=== PATIENT | female | born 1955 | race Caucasian/White ===

== ENCOUNTER 2017-12-11 07:52 | Day surgery (SDC) | payer BC ==
[~2017-12-11] VITALS: Ht 172.7 cm; Wt 57.6 kg
[~2017-12-11 07:52] MED LIST: ALUMAGSIMA PO; Norco 5-325 Ta1 EACH PO; OMEP20ER PO; SUCR1 PO; [UNRECOGNIZED DRUG - OTHER]
[2017-12-11] MEDS ORDERED: Caltrate-600 W1 EACH (09:07)
[2017-12-11] MEDS ORDERED: CENTRUM COMPLE1 EACH (09:07)
[2017-12-11] MEDS ORDERED: DEXL60CA3 (09:07)
== END 2017-12-11 10:15 | disposition home or self-care (01) ==
LOC: ORSCSDS 07:52
PROVIDERS: Internal Medicine Gastroenterology
PROC: 0DBH8ZX Excision of Cecum, Via Natural or Artificial Opening Endoscopic, Diagnostic (ICD-10-PCS; principal; 2017-12-11 09:30)
PROC: 0DBM8ZX Excision of Descending Colon, Via Natural or Artificial Opening Endoscopic, Diagnostic (ICD-10-PCS; principal; 2017-12-11 09:30)
DX: Z12.11 Encounter for screening for malignant neoplasm of colon (principal); D12.0 Benign neoplasm of cecum; K63.5 Polyp of colon; K64.8 Other hemorrhoids; D64.9 Anemia, unspecified; Z87.891 Personal history of nicotine dependence
CPT/HCPCS: 88305; J7120

== ENCOUNTER 2018-12-30 08:36 | Day surgery (SDC) | payer BC ==
[~2018-12-30] VITALS: Ht 172.7 cm; Wt 60.2 kg
[~2018-12-30 08:36] MED LIST changes: +CENTRUM COMPLE1 EACH; +Caltrate-600 W1 EACH; +DEXL60CA3
--- NOTE | 2018-12-30 10:05 | NUR ---
12/30/18 1005 Maria Romo WHEN ASKED IF PT. HAD ANY PAIN, PT. VERBALIZES DISCOMFORT IN HER ABD. BUT COULDN'T DESCRIBE. STATED "NOT NORMAL". PT. ALSO C/O NOGUEIRA. PT. VERBALIZES VOMITING AT 0800 THIS AM. PT. HAD FINISHED HER PREP AT 0530. PT. VERBALIZES NOT BEING NAUSEATED NOW.
== END 2018-12-30 11:15 | disposition home or self-care (01) ==
LOC: ORSCSDS 08:36
PROVIDERS: Internal Medicine Gastroenterology
PROC: 0DBN8ZX Excision of Sigmoid Colon, Via Natural or Artificial Opening Endoscopic, Diagnostic (ICD-10-PCS; principal; 2018-12-30 10:15)
DX: Z12.11 Encounter for screening for malignant neoplasm of colon (principal); K63.5 Polyp of colon; K57.30 Diverticulosis of large intestine without perforation or abscess without bleeding; Z87.891 Personal history of nicotine dependence; Z79.899 Other long term (current) drug therapy
CPT/HCPCS: 88305; J2704; J7120